=== PATIENT | male | born 1960 | race Caucasian/White ===

== ENCOUNTER 2019-03-08 09:50 | Day surgery (SDC) | payer BC ==
[2019-03-07 11:00] VITALS: BMI 29.1
[~2019-03-08 09:50] MED LIST: Cyclopentolate 1% Opth Drop 2 ML BOT FS SCH; Fentanyl 100 MCG/2 ML VIAL ONE; Fluorouracil 100 MG, Enoxaparin Sodium 25 MG, EPINEPHrine 0.3 MG in Ophthalmic Irrigati... IRR SCH; Midazolam HCl 2 mg/2 ml Vial ONE; Phenylephrine 2.5% Ophth Soln 5 ML BOT FS SCH
[2019-03-08] MEDS ORDERED: Cyclopentolate 1% Opth Drop 2 ML BOT ONE (10:13)
[2019-03-08] MEDS ORDERED: Phenylephrine 2.5% Ophth Soln 5 ML BOT ONE (10:13)
--- NOTE | 2019-03-08 13:10 | OP ---
DATE OF PROCEDURE: 03/08/2019 PREOPERATIVE DIAGNOSIS: Epiretinal membrane, left eye. POSTOPERATIVE DIAGNOSIS: Epiretinal membrane, left eye. PROCEDURE PERFORMED: Pars plana vitrectomy, membrane peel, left eye. ANESTHESIA: Local with monitored anesthesia care. COMPLICATIONS: None. PROCEDURE IN DETAIL: The patient was identified. Appropriate informed consent for the planned surgical procedure on left eye had been obtained. The patient was transported to the operative suite. Appropriate cardiopulmonary monitoring was established. Local anesthesia was obtained using retrobulbar modified Van Lint lid block using 50:50 mixture of 4% lidocaine and 0.75% bupivacaine. The patient was prepped and draped in usual sterile manner for ophthalmic surgery on left eye. Lid speculum was placed in left eye. A 25-gauge trocar was placed in the conjunctiva, sclera superotemporally, inferotemporally, supranasally. Infusion line was placed inferotemporally. Light pipe vitreous cutter was inserted into the eye. Core vitrectomy was performed. Indocyanine green dye was infused on the posterior pole x1 identifying the epiretinal membrane. This was elevated using membrane scraper and peeled across the macula in 1 piece using end gripping forceps. Indirect ophthalmoscopy was used to examine the retina 360 degrees. No holes, breaks, or tears were identified. Prophylactic laser was placed behind the sclerotomy sites. Trocars removed. The eye was noted to retain pressure well. Retrobulbar Kenalog and subconjunctival Ancef were placed. Antibiotic ointment was placed. The eye was patched and shielded. The patient was taken to the postoperative recovery unit in good condition having suffered no immediate perioperative complications. The patient was instructed to keep patch and shield on, avoid lifting or bending. Followup appointment with Dr. Agarwal. Job ID: [id number]
== END 2019-03-08 14:00 | disposition home or self-care (01) ==
LOC: SDC 09:50
PROVIDERS: ATTEND Ophthalmology Retina Specialist
DX: H35.372 Puckering of macula, left eye (principal); Z88.0 Allergy status to penicillin
CPT/HCPCS: J0171; J1650; J2250; J3010; J9190

== ENCOUNTER 2020-05-01 06:35 | Day surgery (SDC) | payer BC ==
[2020-04-29 11:11] VITALS: BMI 27.1
[2020-05-01] MEDS ORDERED: Fentanyl 100 MCG/2 ML VIAL ONE (06:38)
[2020-05-01] MEDS ORDERED: Midazolam HCl 2 mg/2 ml Vial ONE (06:38)
[2020-05-01] MEDS ORDERED: Bupivacaine PF 0.75% SDV 10 ML ONE ×2 (06:58→10:08)
[2020-05-01] MEDS ORDERED: Phenylephrine 2.5% Ophth Soln 5 ML BOT ONE (06:58)
[2020-05-01] MEDS ORDERED: Cyclopentolate 1% Opth Drop 2 ML BOT ONE (06:58)
[2020-05-01] MEDS ORDERED: Triamcinolone 40 MG/ML VIAL ONE (10:08)
[2020-05-01] MEDS ORDERED: CEFAZOLIN 1 GM VIAL ONE (10:08)
[2020-05-01] MEDS ORDERED: Lidocaine 4% PF 5 ML AMP ONE (10:08)
[2020-05-01] MEDS ORDERED: Lidocaine 1% PF 5 ML VIAL ONE (10:08)
[2020-05-01] MEDS ORDERED: Maxitrol 0.1% Opth Oint 3.5 GM TUBE ONE (10:08)
[2020-05-01] MEDS ORDERED: PROPOFOL 200 MG/20 ML VIAL ONE (10:08)
--- NOTE | 2020-05-02 14:05 | OP ---
DATE OF PROCEDURE: 05/01/2020 PREOPERATIVE DIAGNOSIS: Glaucoma, left eye. POSTOPERATIVE DIAGNOSIS: Glaucoma, left eye. PROCEDURES PERFORMED: Pars plana vitrectomy, tube shunt, scleral patch graft in the left eye. ANESTHESIA: Local with monitored anesthesia care. DESCRIPTION OF PROCEDURE: The patient was identified in the preoperative holding area. Appropriate informed consent for the planned surgical procedure on the left eye had been obtained. The patient was transported to the operative suite. Appropriate cardiopulmonary monitoring was established. Local anesthesia was obtained using retrobulbar modified Van Lint lid block using 50:50 mixture of 4% lidocaine and 0.75% bupivacaine. The patient was prepped and draped in usual sterile manner for ophthalmic surgery on the left eye. Lid speculum was placed in the left eye, and 25-gauge trocar was placed through the conjunctiva and sclera superotemporally, inferotemporally, and supranasally. Infusion line was placed inferotemporally. Light pipe and vitreous cutter were inserted into the eye. Core vitrectomy was performed. An FP7 tube shunt was placed superior temporally, fixated in place with 5-0 Mersilene sutures. Tube was introduced into the anterior vitreous via 22-gauge incision and covered with the Tutoplast graft. Conjunctiva was closed with 6-0 plain gut suture. Retrobulbar Kenalog and subconjunctival Ancef were placed. Intravitreal Kenalog was placed. The eye was patched and shielded. The patient was taken to postoperative recovery unit in good condition, having suffered no immediate perioperative complications. The patient was instructed to keep patch and shield on, avoid lifting and bending, followup appointment with Dr. Agarwal. Job ID: [id number]
== END 2020-05-01 10:45 | disposition home or self-care (01) ==
LOC: SDC 06:35
PROVIDERS: ATTEND Ophthalmology Retina Specialist
PROC: 08133J4 Bypass Left Anterior Chamber to Sclera with Synthetic Substitute, Percutaneous Approach (ICD-10-PCS; principal; 2020-05-01)
DX: H40.2220 Chronic angle-closure glaucoma, left eye, stage unspecified (principal); Z79.899 Other long term (current) drug therapy; Z88.0 Allergy status to penicillin
CPT/HCPCS: J0690; J2001; J2250; J2704; J3010; J3301; J3490; L8612